=== PATIENT | female | born 1935 | race Caucasian/White ===

== ENCOUNTER 2018-11-07 07:19 | Emergency (ER) | payer MEDICAID ==
[~2018-11-07] VITALS: Ht 152.4 cm; Wt 52.6 kg
[~2018-11-07 07:19] MED LIST: CAPOTEN12.5 MG; METFORMIN HCL500 MG
[2018-11-07 07:29] VITALS: Ht 152.4 cm; Wt 52.6 kg
[2018-11-07 08:54] VITALS: BP 139/84
== END 2018-11-07 10:31 | disposition home or self-care (01) ==
LOC: ED 07:19
DX: M13.852 Other specified arthritis, left hip (principal); I10 Essential (primary) hypertension; E11.9 Type 2 diabetes mellitus without complications; E78.00 Pure hypercholesterolemia, unspecified
CPT/HCPCS: J1885

== ENCOUNTER 2018-11-28 09:26 | Emergency (ER) | payer MEDICAID ==
[~2018-11-28] VITALS: Ht 149.9 cm; Wt 49.9 kg
[2018-11-28 09:32] VITALS: Ht 149.9 cm; Wt 49.9 kg
[2018-11-28 10:26] VITALS: BP 135/66
== END 2018-11-28 10:26 | disposition home or self-care (01) ==
LOC: ED 09:26
DX: G89.29 Other chronic pain (principal); M25.552 Pain in left hip; I10 Essential (primary) hypertension; E11.9 Type 2 diabetes mellitus without complications; E78.00 Pure hypercholesterolemia, unspecified; Z76.0 Encounter for issue of repeat prescription
CPT/HCPCS: J1885

== ENCOUNTER 2019-04-02 07:42 | Emergency (ER) | payer OTHER ==
[~2019-04-02] VITALS: Ht 152.4 cm; Wt 57.6 kg
[2019-04-02 07:50] VITALS: Ht 152.4 cm; Wt 57.6 kg
[2019-04-02 09:46] VITALS: BP 146/90
== END 2019-04-02 09:46 | disposition home or self-care (01) ==
LOC: ED 07:42
DX: S00.03XA Contusion of scalp, initial encounter (principal); S09.8XXA Other specified injuries of head, initial encounter; I10 Essential (primary) hypertension; E11.9 Type 2 diabetes mellitus without complications; E78.00 Pure hypercholesterolemia, unspecified; W01.0XXA Fall on same level from slipping, tripping and stumbling without subsequent striking against object, initial encounter; Y93.89 Activity, other specified; Y92.89 Other specified places as the place of occurrence of the external cause; Y99.8 Other external cause status
CPT/HCPCS: 82962; J1100; J1885